=== PATIENT | male | born 1985 | race Caucasian/White ===

== ENCOUNTER 2017-02-24 01:03 | Emergency (ER) | payer SELFPAY ==
[2017-02-24 02:45] VITALS: BP 132/79
== END 2017-02-24 02:46 | disposition home or self-care (01) ==
LOC: ED 01:03
DX: R51 Headache (principal); R50.9 Fever, unspecified; F17.210 Nicotine dependence, cigarettes, uncomplicated; Z71.6 Tobacco abuse counseling
CPT/HCPCS: 99406; J1885

== ENCOUNTER 2018-02-14 11:33 | Emergency (ER) | payer SELFPAY ==
[~2018-02-14] VITALS: Ht 182.9 cm; Wt 86.2 kg
[2018-02-14 11:42] VITALS: BP 133/75
== END 2018-02-14 13:15 | disposition home or self-care (01) ==
LOC: ED 11:33
DX: S01.21XA Laceration without foreign body of nose, initial encounter (principal); W22.8XXA Striking against or struck by other objects, initial encounter; Y93.89 Activity, other specified; Y92.89 Other specified places as the place of occurrence of the external cause; Y99.8 Other external cause status
CPT/HCPCS: 90715

== ENCOUNTER 2019-06-19 20:34 | Emergency (ER) | payer SELFPAY ==
[~2019-06-19] VITALS: Ht 170.2 cm; Wt 90.3 kg
[2019-06-19 20:58] VITALS: BP 127/88; Ht 170.2 cm; Wt 90.3 kg
== END 2019-06-19 22:23 | disposition home or self-care (01) ==
LOC: ED 20:34
DX: J20.9 Acute bronchitis, unspecified (principal)

== ENCOUNTER 2019-06-28 09:19 | Emergency (ER) | payer SELFPAY ==
[~2019-06-28] VITALS: Ht 172.7 cm; Wt 88.5 kg
[2019-06-28 09:21] VITALS: Ht 172.7 cm; Wt 88.5 kg
[2019-06-28 10:47] VITALS: BP 142/85
== END 2019-06-28 10:47 | disposition home or self-care (01) ==
LOC: ED 09:19
DX: J02.8 Acute pharyngitis due to other specified organisms (principal)
CPT/HCPCS: J1885